=== PATIENT | female | born 1995 | race Two or more races ===

== ENCOUNTER 2016-07-18 13:21 | Emergency (ER) | payer OTHER, MEDICAID ==
--- NOTE | 2016-07-18 15:03 | EDPHY ---
H & P Stated Complaint: R Arm wrist/forearm/elbow after 4ft fall. HPI/ROS: Chief complaint: Right arm injury History of present illness: This is a 20-year-old female who presents to the emergency department for evaluation of a right arm injury. Patient fell off a dirt embankment, approximately 4 feet down onto her right arm. Since then she has had pain in the right elbow, some pain in the right wrist and her right shoulder blade is uncomfortable. She denies other associated signs or symptoms including no open wounds, no paresthesias and no abnormal coolness of the right upper extremity. No report of other injuries including no injury to the head, neck, back, chest, abdomen pelvis or extremities other than described above. There was no loss of consciousness. - Personal History LMP (Females 10-55): IUD In Place Current Tetanus/Diphtheria Vaccine: Unsure Current Tetanus Diphtheria and Acellular Pertussis (TDAP): Unsure - Medical/Surgical History Hx Asthma: No Hx Chronic Respiratory Disease: No Hx Diabetes: No Hx Cardiac Disease: No Hx Renal Disease: No Hx Cirrhosis: No Hx Alcoholism: No Hx HIV/AIDS: No Hx Splenectomy or Spleen Trauma: No Other PMH: Rehab program. Significant social history. lives at [facility], foc scarcely involved, pt in and out of foster, clean and sober currently, no hx of heavy drug use.... - Social History Smoking Status: Former smoker - Physical Exam Exam: General Appearance: Alert, nontoxic Eyes: PERRLA Respiratory: Lungs clear to auscultation Cardiac: Regular rate and rhythm. Gastrointestinal: Soft, nondistended, nontender Neurological: Alert and oriented. Strength and sensation intact and symmetrical. Skin: No lesions consistent with acute trauma Musculoskeletal: Head is normocephalic, atraumatic. The spine is nontender to palpation along its entire length. There is tenderness over the right scapula. She has no tenderness to the right shoulder or right upper arm. She is able to move the right shoulder without discomfort. There is tenderness to the right elbow and discomfort moving it. The right forearm is unremarkable. There is mild tenderness diffusely of the right wrist however no tenderness at snuffbox, she is moving it well. She is moving all digits in the right hand. She is moving all other extremities well. Constitutional: Initial Vital Signs Temperature (C) 36.7 C 07/18/16 13:26 Heart Rate 89 07/18/16 13:26 Respiratory Rate 16 07/18/16 13:26 Blood Pressure 123/86 H 07/18/16 13:26 O2 Sat (%) 92 07/18/16 13:26 O2 Delivery Mode Room Air Allergies/Adverse Reactions: No Known Allergies Allergy (Verified 07/18/16 13:31) Home Medications: Medication Instructions Recorded NK [No Known Home Meds] 07/18/16 Medical Decision Making - Diagnostics Imaging: X-ray series of the right elbow shows large joint effusion, x-ray series of the right scapula and wrist are unremarkable Procedures: Procedure: Splint placement. A posterior long-arm splint was applied. After application of the splint I returned and re-examined the patient. The splint was adequately immobilizing the joint and distal to the splint the patient's circulation and sensation was intact. Patient is placed in a sling ED Course/Re-evaluation: Patient seen under the supervision of my secondary supervising physician Dr. Swapnil Mercado. Patient presents to the emergency department for right upper extremity injury. The right upper extremity is neurovascularly intact. X-rays of the affected area do show a large right elbow joint effusion. She is splinted for suspected occult fracture. By history and physical exam no evidence of trauma to other parts of the body. Patient is discharged home. Home care is discussed. She is referred to Orthopedics for continued evaluation and care. Return precautions are given. Differential Diagnosis: Included but not limited to contusion, sprain or strain, fracture, joint dislocation Departure - Departure Disposition: Home, Routine, Self-Care Clinical Impression: Effusion of elbow joint, right Condition: Good Instructions: Elbow Sprain (ED) Additional Instructions: Follow-up with orthopedics this week for continued evaluation and care If symptoms worsen or new symptoms develop return to the emergency department for recheck Referrals: Saeid Botello MD [Medical Doctor] - As per Instructions
[2016-07-18 15:19] VITALS: BP 107/78; PULSE 85; RESP 20; TEMP 98.4; O2SAT 95
== END 2016-07-18 15:19 | disposition home or self-care (01) ==
DX: M25.421 Effusion, right elbow (principal); Z87.891 Personal history of nicotine dependence; W17.81XA Fall down embankment (hill), initial encounter
CPT/HCPCS: A4565